=== PATIENT | female | born 1940 | race Caucasian/White ===

== ENCOUNTER 2019-01-18 12:11 | Emergency (ER) | payer MEDICARE, OTHER ==
--- NOTE | 2019-01-18 12:38 | ERPHSYRPT ---
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 pt is asymptomatic. pt denies headache, visual changes and denies cp. she only came to ED at the direction of her doctor. pt has been taking her meds as prescribed. Timing/Duration: today Severity: moderate Associated Symptoms: denies symptoms Allergies/Adverse Reactions: cefaclor [From Ceclor] Allergy (Verified 01/18/19 12:49) Tightness of Throat shellfish derived Allergy (Verified 01/18/19 12:49) Tightness of Throat Home Medications: Atorvastatin Calcium [Lipitor] 20 mg PO DAILY 11/10/17 [History] Docusate Sodium 100 mg [Colace 100 MG] 100 mg PO DAILY 11/10/17 [History] Ferrous Sulfate, Dried [Iron] 160 mg PO QID 11/10/17 [History] Fluoxetine HCl 20 mg [Prozac 20 MG] 20 mg PO DAILY 11/10/17 [History] Fluticasone Furoate [Veramyst] 10 gm NS HS 11/10/17 [History] Hydrochlorothiazide 25 mg [hydroDIURIL 25 MG] 25 mg PO DAILY 11/10/17 [ History] Lisinopril 10 mg [Zestril 10 MG] 10 mg PO DAILY 11/10/17 [History] Milnacipran HCl [Savella] 50 mg PO BID 11/10/17 [History] Temazepam [Restoril] 30 mg PO BID 11/10/17 [History] Tizanidine HCl 4 mg [Zanaflex 4 MG] 4 mg PO DAILY 11/10/17 [History] Alendronate Sodium 70 mg [Fosamax 70 MG] 70 mg PO 01/18/19 [History] Hx Influenza Vaccination/Date Given: Yes Hx Pneumococcal Vaccination/Date Given: No - Review of Systems Constitutional: No Symptoms Eyes: No Symptoms Ears, Nose, & Throat: No Symptoms Respiratory: No Symptoms Cardiac: No Symptoms Abdominal/Gastrointestinal: No Symptoms Genitourinary Symptoms: No Symptoms Musculoskeletal: No Symptoms Skin: No Symptoms Neurological: No Symptoms Psychological: No Symptoms Endocrine: No Symptoms Hematologic/Lymphatic: No Symptoms Immunological/Allergic: No Symptoms All Other Systems: Reviewed and Negative - Past Medical History Pertinent Past Medical History: Yes Neurological History: No Pertinent History ENT History: Cataracts Cardiac History: No Pertinent History, Hypertension Respiratory History: No Pertinent History Endocrine Medical History: No Pertinent History Musculoskeletal History: Arthritis, Fibromyalgia GI Medical History: No Pertinent History History: No Pertinent History Psycho-Social History: No Pertinent History Female Reproductive Disorders: No Pertinent History Other Medical History: Notes previous fall 3-4 months ago. - Past Surgical History Past Surgical History: Yes Neuro Surgical History: No Pertinent History Cardiac: No Pertinent History Respiratory: No Pertinent History Gastrointestinal: No Pertinent History Genitourinary: No Pertinent History Musculoskeletal: No Pertinent History Female Surgical History: Hysterectomy, Other Other Surgical History: breast bx bilateral-benighn, cataract IOL alton., colonoscopy with polyectomy and EGD - Social History Smoking Status: Never smoker Exposure to second hand smoke: No Drug Use: none - Nursing Vital Signs Nursing Vital Signs: Initial Vital Signs Temperature 97.2 F 01/18/19 12:40 Pulse Rate 48 L 01/18/19 12:40 Respiratory Rate 18 01/18/19 12:40 Blood Pressure 212/92 01/18/19 12:40 O2 Sat by Pulse Oximetry 97 01/18/19 12:40 Pain Scale Pain Intensity 0 - Physical Exam General Appearance: no apparent distress, alert Eye Exam: PERRL/EOMI, eyes nml inspection Ears, Nose, Throat Exam: normal ENT inspection, moist mucous membranes Neck Exam: normal inspection, non-tender, supple, full range of motion Respiratory Exam: normal breath sounds, lungs clear, airway intact, No chest tenderness, No respiratory distress Cardiovascular Exam: regular rate/rhythm, normal heart sounds, normal peripheral pulses Gastrointestinal/Abdomen Exam: soft, normal bowel sounds, No tenderness Pelvic Exam: not done Rectal Exam: not done Back Exam: normal inspection, normal range of motion, No CVA tenderness, No vertebral tenderness Extremity Exam: normal inspection, normal range of motion, pelvis stable Neurologic Exam: alert, oriented x 3, cooperative, 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, normal mood/affect, nml cerebellar function, nml station & gait Skin Exam: normal color, warm, dry Lymphatic Exam: No adenopathy SpO2 Interpretation: normal O2 Delivery: Room Air Ordered Tests: Active Orders 24 hr Category Date Time Status 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 2.5 Mg IV 01/18/19 13:38 0.625 mg STAT ONE Administration Enalaprilat Confirm 01/18/19 13:41 Vasotec I.V. 2.5 Mg Administered 01/18/19 13:42 Dose 2.5 mg IV .[facility] ONE Lab/Rad Data: Laboratory Result Diagrams 01/18/19 13:10 Laboratory Results 01/18/19 Range/Units 13:10 Sodium 140 (137-145) mmol/L Potassium 4.1 (3.5-5.1) mmol/L Chloride 107 (98-107) mmol/L Carbon Dioxide 23 (22-30) mmol/L Anion Gap 13.8 (5-15) MEQ/L BUN 23 H (7-17) mg/dL Creatinine 1.42 H (0.52-1.04) mg/dL Estimated GFR 38.0 ML/MIN Glucose 95 (74-106) mg/dL Calcium 9.1 (8.4-10.2) mg/dL Total Bilirubin 0.40 (0.2-1.3) mg/dL AST 20 (14-36) U/L ALT 18 (0-35) U/L Alkaline Phosphatase 133 H (38-126) U/L Serum Total Protein 6.8 (6.3-8.2) g/dL Albumin 3.8 (3.5-5.0) g/dL - Progress Progress: improved, re-examined Counseled pt/family regarding: lab results, diagnosis, need for follow-up - Departure Time of Disposition: 14:20 Departure Disposition: Home Clinical Impression: Hypertensive urgency Condition: Stable Critical Care Time: Yes Critical Care Time(excluding separately billable procedures): 30-74 minutes Referrals: YANN GALLARDO [Primary Care Provider] - Additional Instructions: take your medications as prescribed. monitor blood pressure morning, noon and evening for next 3 days. call your prescribing physician today to arrange outpatient appointment and for further instructions.
[2019-01-18] MEDS ORDERED: VASOTEC I.V. 2.5 MG IV ONE ×2 (13:37→13:41)
[2019-01-18 13:46] LABS: ALBUMIN 3.8 g/dL (3.5-5.0); ANION GAP 13.8 MEQ/L (5-15); BILIRUBIN,TOTAL 0.4 mg/dL (0.2-1.3); Calcium 9.1 mg/dL (8.4-10.2); Creatinine 1 1.42 mg/dL (0.52-1.04); Potassium 4.1 mmol/L (3.5-5.1); Total Protein 6.8 g/dL (6.3-8.2)
[2019-01-18 14:41] VITALS: BP 186/96; PULSE 78; O2SAT 100
== END 2019-01-18 14:41 | disposition home or self-care (01) ==
LOC: ED 12:11
DX: I16.0 Hypertensive urgency (principal); M79.7 Fibromyalgia; M19.90 Unspecified osteoarthritis, unspecified site
CPT/HCPCS: 36000; 36415; 80053; 93041; 96374; 99284